=== PATIENT | male | born 1990 | race Caucasian/White ===

== ENCOUNTER 2019-11-27 13:47 | Emergency (ER) | payer MEDICAID ==
[~2019-11-27] VITALS: Ht 182.9 cm; Wt 83.5 kg
[2019-11-27 14:00] VITALS: BP 143/86
[2019-11-27] MEDS: DEXAMETHASONE SOD PHOSPHATE 4 MG/ML VIAL IM ONE (14:41)
[2019-11-27] MEDS ORDERED: DEXAMETHASONE SOD PHOSPHATE 10 MG/ML VIAL ONE (14:42)
[2019-11-27] MEDS: ALBUTEROL FS 2.5 MG/3 ML VIAL.NEB NEB ONE (14:53)
[2019-11-27] MEDS ORDERED: ACETAMINOPHEN 325 MG TABLET ONE (16:24)
[2019-11-27] MEDS: ACETAMINOPHEN 325 MG TABLET PO ONE (16:47)
== END 2019-11-27 17:02 | disposition home or self-care (01) ==
LOC: ER 13:52
DX: J02.0 Streptococcal pharyngitis (principal); J20.8 Acute bronchitis due to other specified organisms
CPT/HCPCS: 71045; 87804 ×2; 87880; 94640; 99284; J1100; 86403-TC